=== PATIENT | female | born 1940 | race Caucasian/White ===

== ENCOUNTER 2018-05-13 07:25 | Day surgery (SDC) | payer MEDICARE, OTHER ==
[2018-05-13] VITALS (11 sets, daily range): BP systolic 120–134; BP diastolic 50–62; PULSE 61–72; TEMP 97.3
[~2018-05-13] VITALS: Ht 167.6 cm; Wt 70.7 kg
[2018-05-13] MEDS ORDERED: THE MEDICINE S200 M2 PO (08:07)
[2018-05-13] MEDS ORDERED: LIPITOR 40MG TA40 MG PO (08:07)
[2018-05-13] MEDS ORDERED: ASPIRIN 81M81 MG/TA2 PO (08:08)
[2018-05-13 08:22] LABS: HEMATOCRIT 38.4 % (37.0-47.0); HEMOGLOBIN 12.9 g/dl (12.5-16.0); MEAN CELL VOLUME 102 fl (80.0-100.0); MEAN CORPUSCULAR HEMOGLOBIN 34 pg (27.0-31.0); MEAN CORPUSCULAR HGB CONC 34 g/dl (33.0-37.0); MEAN PLATELET VOLUME 9.7 fl (7.4-10.4); PLATELET COUNT 208 K/mm3 (130-400); RED BLOOD COUNT 3.78 M/mm3 (4.10-5.30); REDCELL DISTRIBUTION WIDTH-CV 14.2 % (11.5-14.5)
[2018-05-13 08:30] LABS: INR 1.2 (0.8-3.0); PROTHROMBIN TIME 13.1 SECONDS (9.7-12.8)
[2018-05-13 08:33] LABS: CALCIUM 9.4 mg/dL (8.4-10.2); CREATININE, serum 0.6 mg/dL (0.52-1.25); POTASSIUM 4.7 mmol/L (3.4-5.0)
[2018-05-13] MEDS ORDERED: CARDIZEM CD 12120 MG PO (10:48)
== END 2018-05-13 15:26 | disposition home or self-care (01) ==
LOC: COL.CAR 07:25
PROVIDERS: Internal Medicine Cardiovascular Disease
DX: I25.10 Atherosclerotic heart disease of native coronary artery without angina pectoris (principal); I65.22 Occlusion and stenosis of left carotid artery; I65.21 Occlusion and stenosis of right carotid artery; E78.5 Hyperlipidemia, unspecified; M19.90 Unspecified osteoarthritis, unspecified site; R79.82 Elevated C-reactive protein (CRP); E78.00 Pure hypercholesterolemia, unspecified
CPT/HCPCS: C1760; C1894; J1644; J2250; J3010; Q9967

== ENCOUNTER → 2019-10-18 | Outpatient (CLI) | payer MEDICARE, OTHER ==
[2019-10-18] VITALS (15 sets, daily range): BP systolic 117–171; BP diastolic 44–81; PULSE 47–70
[~2019-10-18] VITALS: Ht 167.6 cm; Wt 72.2 kg
[~2019-10-18] MED LIST: ASPIRIN 81M81 MG/TA2 PO; CARDIZEM CD 12120 MG PO; CARDIZEM120 MG PO; CLEANSE PO; CRANBERRY250 MG PO; LIPITOR 40MG TA40 MG PO; LIPITOR20 MG PO; MASON NATURAL1200 MG PO; MEGA MULTIVITAM1 TAB PO; MULTIPLE VITAMI1 CAP PO; PROBIOTIC FORMU1 CAP PO; THE MEDICINE S200 M2 PO
[2019-10-18 09:59] LABS: INR 1.3 (0.8-3.0)
--- NOTE | 2019-10-18 11:10 | NUR ---
PT AMBULATORY TO CT ROOM. PT PLACED ON TABLE AND MONITORING EQUIPMENT PLACED. IMAGES TAKEN AND SENT.
== END ==
LOC: COL.RAD 08:43
PROVIDERS: Internal Medicine Medical Oncology
DX: E83.19 Other disorders of iron metabolism (principal); R79.89 Other specified abnormal findings of blood chemistry
CPT/HCPCS: 32106; 32107